=== PATIENT | male | born 1960 | race Two or more races ===

== ENCOUNTER 2021-06-08 21:45 | Inpatient (IN) | payer OTHER ==
[~2021-06-08] VITALS: Ht 188 cm; Wt 95.7 kg
[2021-06-08] MEDS ORDERED: NITROGLYCERIN 0.4 MG/TAB BOTTLE ONE (22:51)
[2021-06-08] MEDS ORDERED: NITROGLYCERIN 0.4 MG/TAB BOTTLE SL ONE (23:00)
[2021-06-08 23:05] LABS: BASOPHILS # (AUTO) 0.1 K/uL (0.0-0.2); EOSINOPHILS % (AUTO) 0.8 % (0.0-6.0); HEMATOCRIT 26 % (39-51); HEMOGLOBIN 8.3 g/dL (13.5-17.5); LYMPHOCYTES % (AUTO) 14.3 % (20.0-44.0); MEAN CORPUSCULAR HGB CONC 32 g/dl (31.0-36.0); MEAN CORPUSCULAR VOLUME 93 fL (80-96); MONOCYTES # (AUTO) 0.8 K/uL (0.1-1.30); MONOCYTES % (AUTO) 10.4 % (2.0-12.0); NEUTROPHILS # (AUTO) 5.3 K/uL (1.8-8.9); NEUTROPHILS % (AUTO) 73.5 % (43.0-81.0); PLATELET COUNT (AUTO) 183 K/uL (150-450); RED BLOOD CELL COUNT(AUTO) 2.77 MIL/uL (4.5-6.0); WHITE BLOOD COUNT (AUTO) 7.3 K/uL (4.3-11.0)
[2021-06-08 23:39] LABS: ALBUMIN 2.8 g/dL (3.4-5.0); ALKALINE PHOSPHATASE 103 U/L (46-116); ASPARTATE AMINOTRANSFERASE 5 U/L (15-37); BILIRUBIN,DIRECT 0.2 mg/dL (0.0-0.2); BILIRUBIN,TOTAL 0.5 mg/dL (0.2-1.0); CALCIUM, SERUM 8.9 mg/dL (8.5-10.1); CARBON DIOXIDE 29 mmol/L (21-32); CHLORIDE 96 mmol/L (98-107); GLUCOSE 123 mg/dL (74-106); POTASSIUM 4.9 mmol/L (3.5-5.1); SODIUM SERUM 135 mmol/L (136-145); UREA NITROGEN, BLOOD 46 mg/dL (7-18)
[2021-06-08 23:50] LABS: ALANINE AMINOTRANSFERASE < 6 U/L (12-78)
[2021-06-08 23:51] LABS: CREATININE 10.6 mg/dL (0.6-1.3)
[2021-06-09] MEDS ORDERED: ASPIRIN 81 MG TAB.CHEW ONE (00:37)
[2021-06-09] MEDS ORDERED: FUROSEMIDE 40 MG/4 ML VIAL IV ONE (01:00)
[2021-06-09] MEDS ORDERED: ACETAMINOPHEN 325 MG TABLET PO PRN (01:00)
[2021-06-09] MEDS ORDERED: MAG HYDROX/AL HYDROX/SIMETH 30 ML UDC PO PRN (01:00)
[2021-06-09] MEDS ORDERED: ZOLPIDEM TARTRATE 5 MG TABLET PO PRN (01:00)
[2021-06-09] MEDS: HEPARIN SODIUM, PORCINE 5000 UNITS/1 ML VIAL SQ SCH ×4 (01:00→21:00)
[2021-06-09] MEDS ORDERED: MAGNESIUM HYDROXIDE 30 ML UDC PO PRN (01:00)
[2021-06-09] MEDS ORDERED: ASPIRIN 81 MG TAB.CHEW PO ONE (01:00)
[2021-06-09] MEDS ORDERED: ONDANSETRON HCL/PF 4 MG/2 ML VIAL IVP PRN (01:00)
[2021-06-09] MEDS ORDERED: Z GUARD REMEDY 4 OZ OINT TP PRN (01:00)
[2021-06-09 03:00] VITALS: BP 184/105
[2021-06-09] MEDS: GUAIFENESIN LA 600 MG TABLET.SA PO SCH ×3 (03:05→21:21)
[2021-06-09] MEDS: NITROGLYCERIN PACKET 1 GM PACKET TOP SCH ×3 (03:05→21:00)
[2021-06-09 07:54] LABS: BASOPHILS # (AUTO) 0.1 K/uL (0.0-0.2); BASOPHILS % (AUTO) 0.8 % (0.0-2.0); EOSINOPHILS % (AUTO) 0.2 % (0.0-6.0); HEMATOCRIT 26 % (39-51); HEMOGLOBIN 8.4 g/dL (13.5-17.5); LYMPHOCYTES # (AUTO) 1.3 K/uL (0.8-4.8); LYMPHOCYTES % (AUTO) 19.9 % (20.0-44.0); MEAN CORPUSCULAR HGB CONC 33 g/dl (31.0-36.0); MEAN CORPUSCULAR VOLUME 92 fL (80-96); MONOCYTES # (AUTO) 0.8 K/uL (0.1-1.30); MONOCYTES % (AUTO) 11.9 % (2.0-12.0); NEUTROPHILS # (AUTO) 4.4 K/uL (1.8-8.9); NEUTROPHILS % (AUTO) 67.2 % (43.0-81.0); PLATELET COUNT (AUTO) 174 K/uL (150-450); RED BLOOD CELL COUNT(AUTO) 2.81 MIL/uL (4.5-6.0); WHITE BLOOD COUNT (AUTO) 6.6 K/uL (4.3-11.0)
[2021-06-09 08:00] VITALS: BP 180/106
[2021-06-09] MEDS ORDERED: ASPIRIN 81 MG TAB.CHEW PO SCH (09:00)
[2021-06-09] MEDS ORDERED: NITROGLYCERIN 0.4 MG/TAB BOTTLE ONE (09:24)
[2021-06-09] MEDS ORDERED: IOHEXOL-350 100 ML VIAL IV ONE (09:24)
[2021-06-09] MEDS ORDERED: IV NS 0.9% 250 ML IV ONE (09:24)
[2021-06-09] MEDS ORDERED: METOPROLOL TARTRATE INJ 5 MG/5 ML AMPUL ONE ×2 (09:24→09:39)
[2021-06-09] MEDS ORDERED: CT SWABBABLE VALVE TRANS SET 1 EA INFUS.SET MC ONE (09:24)
[2021-06-09] MEDS: METOPROLOL TARTRATE INJ 5 MG/5 ML AMPUL IVP PRN ×6 (09:25→09:50)
[2021-06-09 09:28] LABS: CALCIUM, SERUM 8.8 mg/dL (8.5-10.1); POTASSIUM 4.8 mmol/L (3.5-5.1)
[2021-06-09 09:30] LABS: MAGNESIUM 1.8 mg/dL (1.8-2.4); PHOSPHORUS 6.9 mg/dL (2.5-4.9)
[2021-06-09] MEDS ORDERED: NITROGLYCERIN 0.4 MG/TAB BOTTLE SL ONE (09:30)
[2021-06-09 09:31] LABS: CREATININE 10.6 mg/dL (0.6-1.3)
[2021-06-09] MEDS: hydrALAZINE HCL 50 MG TABLET PO SCH ×3 (10:09→17:18)
[2021-06-09] MEDS: METOPROLOL TARTRATE 50 MG TABLET PO SCH ×3 (12:00→23:55)
[2021-06-09 16:00] VITALS: BP 121/64
[2021-06-09] MEDS ORDERED: ASPI-1169 PO (17:10)
[2021-06-09] MEDS ORDERED: METO50TA16 PO (17:10)
[2021-06-09] MEDS ORDERED: HYDR-4077 PO (17:10)
[2021-06-09] MEDS ORDERED: ATOR10TA PO (17:10)
[2021-06-09] MEDS ORDERED: ATORVASTATIN 10 MG TABLET PO SCH (22:00)
[2021-06-10] VITALS: BP 207/110
[2021-06-10] MEDS: METOPROLOL TARTRATE 50 MG TABLET PO SCH (06:00)
[2021-06-10] MEDS ORDERED: hydrALAZINE HCL IV 20 MG VIAL IV PRN (08:30)
[2021-06-10] MEDS ORDERED: LABETALOL 20 MG/4 ML VIAL IV PRN (08:30)
== END 2021-06-10 08:00 | disposition left against medical advice (07) | DRG 190 ==
LOC: ER 21:48 → TELE 06-09 00:51
PROVIDERS: ADMIT Nurse Practitioner Acute Care; ATTEND Internal Medicine
PROC: 5A1D70Z Performance of Urinary Filtration, Intermittent, Less than 6 Hours Per Day (ICD-10-PCS; principal; 2021-06-09)
DX: I25.10 Atherosclerotic heart disease of native coronary artery without angina pectoris (principal); I21.A1 Myocardial infarction type 2; I71.01 Dissection of thoracic aorta; I13.2 Hypertensive heart and chronic kidney disease with heart failure and with stage 5 chronic kidney disease, or end stage renal disease; I74.09 Other arterial embolism and thrombosis of abdominal aorta; D63.1 Anemia in chronic kidney disease; E83.39 Other disorders of phosphorus metabolism; N18.6 End stage renal disease; D64.9 Anemia, unspecified; I50.9 Heart failure, unspecified; Z20.822 Contact with and (suspected) exposure to COVID-19; Z86.73 Personal history of transient ischemic attack (TIA), and cerebral infarction without residual deficits; Z95.5 Presence of coronary angioplasty implant and graft; I25.2 Old myocardial infarction; I51.3 Intracardiac thrombosis, not elsewhere classified; J43.9 Emphysema, unspecified; M89.9 Disorder of bone, unspecified; Z99.2 Dependence on renal dialysis; Z79.899 Other long term (current) drug therapy
CPT/HCPCS: 36415; 71045-TC; 75574; 80048-TC; 80061-TC; 80076-TC; 83735-TC; 84100-TC; 84484-TC; 85025-TC; 87081-TC; 90935-TC; 93307-TC; C9803; G0378; J1644; J1940; J3490; J7050; Q9967